=== PATIENT | male | born 1960 | race Caucasian/White ===

== ENCOUNTER 2019-11-20 10:23 | Outpatient (CLI) | payer BC, SELFPAY | END 2019-11-20 10:43 | PROVIDERS: PCP Internal Medicine; Visit Provider Internal Medicine Cardiovascular Disease | DX: R06.09 Other forms of dyspnea (principal) | CPT/HCPCS: 93225 ==

== ENCOUNTER 2019-11-25 12:54 | Outpatient (CLI) | payer BC, SELFPAY ==
--- NOTE | 2019-11-26 11:59 | W.HOLTRPT ---
Date of service: 11/26/19 Time of Service: 11:59 Holter Monitor Report Holter Monitor Note: This is a 48-hour Holter monitor ordered for the indication of dyspnea on exertion. ?The patient was in normal sinus rhythm for the Jorde of the recording. Average heart rate was 73 bpm. ?There were no episodes of supraventricular tachycardia and no premature atrial contractions. ?There were no episodes of ventricular tachycardia and rare single ventricular ectopic beats. ?There were no pauses greater than 3 seconds no evidence of high degree heart block and no episodes of atrial fibrillation. ?The single patient triggered event was associated with normal sinus rhythm at a rate of 80 bpm.
== END 2019-11-25 13:14 ==
PROVIDERS: PCP Internal Medicine; Visit Provider Internal Medicine Cardiovascular Disease
DX: R06.09 Other forms of dyspnea (principal)
CPT/HCPCS: 93226

== ENCOUNTER 2020-12-30 13:09 | Outpatient (CLI) | payer BC, SELFPAY ==
[2020-12-30 13:23] LABS: HCT 45.4 % (40.0-50.0); HGB 15.7 g/dL (13.5-17.5); MCHC 34.6 % (32.0-36.0); MCV 92.5 fL (80-95); Platelet Count 204 10^3/uL (130-400); RBC 4.91 10^6/uL (4.36-5.78); RDW 11.9 % (11.8-14.1); RDW-SD 40.6 fL
[2020-12-30 13:42] LABS: Bilirubin Negative (Negative); Blood Negative (Negative); Clarity Clear (Clear); Glucose Negative (Negative); Ketones Trace mg/dL (Negative); Leukocyte Esterase Negative (Negative); Nitrite Negative (Negative); Specific Gravity >= 1.030 (1.005-1.025); Urobilinogen 0.2 EU/dL (Up TO 0.2)
[2020-12-30 14:14] LABS: ALT 30 U/L (16-63); AST 14 U/L (15-37); Alkaline Phosphatase 83 U/L (46-116); Anion Gap 6.5 mmol/L (3-11); BUN 22 mg/dL (7-18); Bilirubin, Total 0.5 mg/dL (0.2-1.0); CO2 29.5 mmol/L (21.0-32.0); CREATININE 1.1 mg/dL (0.70-1.30); Calcium 9.3 mg/dL (8.5-10.1); Calculated LDL 120 mg/dL (<100); Chloride 107 mmol/L (98-107); Cholesterol 205 mg/dL (<200); Glucose 101 mg/dL (74-106); HDL Cholesterol 51 mg/dL (40-60); Potassium 4.6 mmol/L (3.5-5.1); Sodium 143 mmol/L (136-145); TSH (W/Ref FT4) 1.94 uIU/mL (0.36-3.74); Total Protein 6.9 g/dL (6.4-8.2); Triglyceride 170 mg/dL (<150)
[2020-12-30 22:35] LABS: PSA, Screening 0.6 ng/mL (0.0-4.5)
== END 2020-12-30 13:10 | disposition home or self-care (01) ==
PROVIDERS: PCP Internal Medicine; Visit Provider Internal Medicine
DX: Z00.00 Encounter for general adult medical examination without abnormal findings (principal); I10 Essential (primary) hypertension; R73.09 Other abnormal glucose; Z13.1 Encounter for screening for diabetes mellitus; Z13.29 Encounter for screening for other suspected endocrine disorder; Z12.5 Encounter for screening for malignant neoplasm of prostate
CPT/HCPCS: 36415; 80053; 80061; 84153; 85027; 81003; 83036; 84443

== ENCOUNTER 2021-07-07 09:13 | Outpatient (CLI) | payer BC, SELFPAY ==
[2021-07-08 02:08] LABS: COVID-19 RT-PCR UVMMC Result Negative (Negative)
== END 2021-07-07 09:14 | disposition home or self-care (01) ==
LOC: LBO 09:14
PROVIDERS: Family Medicine; PCP Internal Medicine; Visit Provider Podiatrist
DX: Z20.822 Contact with and (suspected) exposure to COVID-19 (principal)
CPT/HCPCS: U0003